=== PATIENT | male | born 1945 | race Caucasian/White ===

== ENCOUNTER 2016-10-29 13:03 | Inpatient (IN) | payer MEDICARE, OTHER ==
[2016-10-29] MEDS ORDERED: MIDAZOLAM 5 MG/5 ML (VERSED) VIAL ONE (13:15)
[2016-10-29] MEDS ORDERED: HEParin 1000 UNIT/ML (10ML VIAL) FOR BOLUS ONE (13:15)
[2016-10-29] MEDS ORDERED: LIDOCAINE 1% INJ 20 ML (XYLOCAINE) VIAL ONE (13:15)
[2016-10-29] MEDS ORDERED: NS IV 1000 ML 1,000 ML ONE (13:15)
[2016-10-29] MEDS ORDERED: NITROGLYCERIN DRIP 25 MG/D5W 0 ML IV ONE (13:15)
[2016-10-29] MEDS ORDERED: fentaNYL INJECTION 100 MCG/2 ML AMP ONE (13:15)
[2016-10-29] MEDS ORDERED: HEParin (CATH LAB) 2,000 ML IV ONE (13:16)
--- NOTE | 2016-10-29 13:16 | Cardiology History & Physical ---
HPI-Cardiology Cardiology Consultation Date of Consultation 10/29/16 Date of Admission Indication: chest pain HPI 71 years old gentleman with no known history, did not see a physician for over 10 years, active smoker, started having chest pain this morning, associated with diaphoresis and shortness of breath, went to [place] emergency room noted to have EKG changes with slight increase in his troponin, had his pain improved after receiving sublingual nitroglycerin, I requested to be transferred to [place] instead of [place]. Upon his arrival patient was feeling better, denied any active pain, received aspirin and heparin in the emergency room at [place]. Denied any palpitation or syncope. PMH-Cardiology Other PMHx Other PMHx: no known past medical history. Did not see a physician for over 10 years Social History Patient Social History Marrital Status: Employed/Student: retired Smoking: Current every day smoker Family Hx Other family history of heart disease ROS-Cardiology Review of Systems General: No Chills, No Night Sweats, Fatigue, No Malaise, No Appetite HEENT: No Head Aches, No Visual Changes, No Eye Pain, No Ear Pain, No Dysphasia , No Sinus Congestion, No Post Nasal Drip, No Sore Throat Pulmonary: Dyspnea, No Cough, No Pleuritic Chest Pain Cardiovascular: Chest Pain, No: Edema, Lt Headedness, Orthopnea, Palpitations, Paroxysmal Noc. Dyspnea Gastrointestinal: No: Abdominal Pain, Constipation, Diarrhea, Hematochezia, Melena, Nausea, Vomiting Genitourinary: No Dysuria, No Frequency, No Incontinence, No Hematuria, No Retention Musculoskeletal: No: arm pain, back pain, foot pain, hand pain, leg pain, neck pain, shoulder pain Neurological: No: Change in speech, Confusion, Incoordination, Numbness, Seizures, Weakness Home Medications & Allergies Allergies: Coded Allergies: No Known Drug Allergies (Unverified , 10/29/16) Home Medication List Reviewed: Yes Exam-Cardiology Exam General Appearance: Alert, Oriented X3, Cooperative, No Acute Distress HEENT: Atraumatic, PERRLA Respiratory: Clear to Auscultation, Normal Air Movement Cardiovascular: Regular Rate, Normal S1, Normal S2, No Murmurs Abdominal: Normal Bowel Sounds, Soft, No Tenderness, No Hepatosplenomegaly, No Masses Extremities: No Clubbing, No Cyanosis, No Edema, Normal Pulses, No Tenderness/ Swelling Skin: No Rashes, No Breakdown, No Significant Lesion Neuro: Normal Gait, Normal Speech, Strength at 5/5 X4 Ext, Normal Tone, Sensation Intact Psych/Mental Status: Mental Status NL, Mood NL Results Labs Labs reported from [facility] to have mildly elevated troponin A/P-Cardiology Admission Diagnosis Non-ST elevation myocardial infarction Coronary artery disease Congestive heart failure, acute left ventricular systolic dysfunction, ischemic cardiomyopathy with ejection fraction 20 percent Tobaccoism Assessment/Plan Non-ST elevation myocardial infarction, patient arrived directly to the catheter lab, underwent cardiac catheterization which showed severe multivessel coronary artery disease, he will be transferred immediately for evaluation for CABG to [place]. I discussed the management plan with Dr. Lui Serrato. Placed intra-aortic balloon pump and start him on heparin drip. Congestive heart failure, acute left ventricular systolic dysfunction, ischemic cardiomyopathy ejection fraction appeared to be 20 percent. Elevated left ventricular end-diastolic pressure. Patient will not be able to tolerate beta blockers, CAMILLE inhibitor and/or ARB due to his current condition, patient receive IV dose of Lopressor, he will be initiated on these medication at [facility] in [place]. Frequent PVCs. Given IV Lopressor. Tobaccoism, educated on smoking cessation Hyperglycemia, diabetes mellitus, blood sugar was about 400 in the emergency room, given 10 units of regular insulin. He will be managed by the temporary staff accountant at [facility]. DALE AMBROSIO MD Oct 29, 2016 1:16 pm
--- NOTE | 2016-10-29 13:16 | Cardiac Procedure Note-CS/ASA ---
Pre-Procedure Note Pre-Op Procedure Note H&P Reviewed The H&P was reviewed, patient examined and no changes noted. Date H&P Reviewed: Oct 29, 2016 Time H&P Reviewed: 13:15 Conscious Sedation Pre-Proced Time Reviewed: 13:15 ASA Class: 3 Airway Mallampati Classification: ([place] appropriate class) I. II. III, IV Lungs Heart ASA score ASA 1: a normal healthy patient ASA 2: a patient with a mild systemic disease (mid diabetes, controlled hypertension, obesity ASA 3: a patient with a severe systemic disease that limits activity (angina , COPD, prior Myocardial infarction) x ASA 4: a patient with an incapacitating disease that is a constant threat to life (CHF, renal failure) ASA 5: a moribund patient not expected to survive 24 hrs. (ruptured aneurysm) ASA 6: a declared brain patient whose organs are being harvested. For emergent operations, add the letter E after the classification Grade 3 Sedation Plan: Analgesia, Amnesia, Plan communicated to team members, Discussed options with patient/fam, Discussed risks with patient/fam Note The patient is an appropriate candidate to undergo the planned procedure, sedation, and anesthesia. The patient immediately re-assessed prior to indication. DALE AMBROSIO MD Oct 29, 2016 13:16
[2016-10-29] MEDS ORDERED: meTOprolol 5 MG/5 ML (LOPRESSOR) VIAL ONE (13:22)
[2016-10-29] MEDS ORDERED: HEParin (CATH LAB) 1,000 ML IV ONE (13:36)
[2016-10-29] MEDS ORDERED: HEParin DRIP 25000 UNIT/500ML 500 ML IV ONE (13:43)
[2016-10-29] MEDS ORDERED: HEParin DRIP 25000 UNIT/500ML 500 ML IV SCH (13:45)
[2016-10-29] MEDS ORDERED: PATIENT MAY USE OWN MEDS, ALL PO SCH (13:45)
[2016-10-29] MEDS ORDERED: NS IV 1000 ML 1,000 ML IV SCH (13:45)
[2016-10-30] MEDS ORDERED: ASPIRIN E.C. 81 MG (ECOTRIN) TAB PO SCH (09:00)
--- NOTE | 2016-10-30 11:44 | DISCHARGE SUMMARY ---
PROCEDURE PHYSICIAN: DALE ABMROSIO DATE OF PROCEDURE: 10/29/2016 BRIEF HISTORY: Mr. Momin is a 71-year-old gentleman with no known history, active smoker. He started having active chest pain early this morning came in [place] emergency room with non-ST elevation myocardial infarction, given aspirin and heparin. The patient requested to be transferred to [place]. PROCEDURE NOTE: After explaining the procedure to the patient, all pros and cons were explained. All questions were answered. The patient signed a consent and then he was placed on the cardiac catheterization laboratory. The right groin was prepped in a sterile fashion. Local anesthesia applied to right groin. 6-Setswana sheath was placed in the right femoral artery. Combination of right and left Spenser catheter were used to access the right and left coronary system. Multiple views were obtained. Pigtail catheter advanced to the left ventricular cavity. Left ventriculogram was done. Pullback LV to aorta was done. The aortic arch angiogram was done. At the end of the procedure I proceeded with intra-aortic balloon pump placement. Pump was placed with no complication. FINDINGS: HEMODYNAMICS: LV pressure 154/29, end-diastolic pressure of 29. Aortic pressure 138/18, mean of 98. ANATOMY: 1. Left main coronary artery is bifurcating to left anterior descending and left circumflex artery with no obstructive disease. 2. Left anterior descending artery has 90% ostial stenosis, totally occluded at the midportion, reconstructed by collaterals from the left system. 3. Left circumflex artery is moderate in size. It has 80 to 90% stenosis at the proximal and midportion. 4. Right coronary artery is totally occluded at the midportion, getting filled by collaterals from the left system. 5. Left ventriculogram was done in the left anterior oblique position. The left ventricle is dilated with severe diffuse left ventricular hypokinesia. Akinesia of the apex. Estimated ejection fraction 20%. 6. Aortic arch angiogram is normal in size. No dissection or aneurysm. Origin of the great neck vessels, both carotids and left subclavian appeared to be normal. CONCLUSION: 1. Severe multivessel disease with total occlusion of the LAD and the right coronary artery, severe disease at the circumflex artery. 2. Severe cardiomyopathy, ischemic in nature. With aneurysmal apex. Estimated ejection fraction 20%. 3. Normal aortic arch and great neck vessels. 4. Successful intra-aortic balloon pump placement. DISCUSSION AND RECOMMENDATION: [facility] I discussed the management plan with Dr. Lui Serrato, who accepted him. He will monitor him for the next 24 to 48 hours and then consider proceeding with a bypass surgery unless the patient becomes more symptomatic. FINAL DIAGNOSES: 1. Non-ST elevation myocardial infarction. 2. Coronary artery disease. 3. Congestive heart failure, acute left ventricular systolic dysfunction, nonischemic cardiomyopathy, ejection fraction 20%. 4. Tobaccoism. Job ID: [id number] Dictated Date: 10/29/2016 13:57:34 Slate Worker Date: 10/30/2016 11:42:17/sb
== END 2016-10-29 14:20 | disposition short-term general hospital (02) | DRG 270 ==
LOC: CATH 13:03 → CSD 13:03 → EDSTATUS 11-17 11:56
PROVIDERS: ADMIT Internal Medicine Cardiovascular Disease; ATTEND Internal Medicine Cardiovascular Disease
PROC: 5A02210 Assistance with Cardiac Output using Balloon Pump, Continuous (ICD-10-PCS; principal; 2016-10-29)
PROC: 4A023N7 Measurement of Cardiac Sampling and Pressure, Left Heart, Percutaneous Approach (ICD-10-PCS; 2016-10-29)
PROC: B2111ZZ Fluoroscopy of Multiple Coronary Arteries using Low Osmolar Contrast (ICD-10-PCS; 2016-10-29)
PROC: B2151ZZ Fluoroscopy of Left Heart using Low Osmolar Contrast (ICD-10-PCS; 2016-10-29)
PROC: B3101ZZ Fluoroscopy of Thoracic Aorta using Low Osmolar Contrast (ICD-10-PCS; 2016-10-29)
DX: I21.4 Non-ST elevation (NSTEMI) myocardial infarction (principal); I50.21 Acute systolic (congestive) heart failure; I25.10 Atherosclerotic heart disease of native coronary artery without angina pectoris; I25.5 Ischemic cardiomyopathy; I49.3 Ventricular premature depolarization; R73.9 Hyperglycemia, unspecified; F17.210 Nicotine dependence, cigarettes, uncomplicated
CPT/HCPCS: 33967; 93458

== ENCOUNTER 2020-02-03 14:46 | Emergency (ER) | payer MEDICARE, OTHER ==
[~2020-02-03] VITALS: Ht 172.7 cm; Wt 78.9 kg
--- NOTE | 2020-02-03 15:10 | ED Neurological Problem ---
General Stated Complaint: THINKS HES HAD A STROKE; DROOPY EYELIDS History of Present Illness Date Seen by Provider: Feb 03, 2020 Time Seen by Provider: 15:05 Initial Comments Pt presents with right facial weakness onset this morning when he woke up. He felt fine when he went to bed. He is unable to close his eyelid or his mouth, or raise his brow on the right side of his face. No loss of sensation though. He feels like his hearing is a little off in his right ear though. He does have a rash on the right side of his face and neck that he has had for about a week, his doctor put him on Clindamycin for it, but it appears to be shingles. Allergies and Home Medications Allergies Coded Allergies: No Known Drug Allergies (Unverified , 02/03/20) Home Medications Carboxymethylcellulos/Glycerin 15 Ml Drops, 15 ML OP PRN Prescribed by: TANMAY PRADO on 02/03/20 1608 Valacyclovir HCl 1,000 Mg Tablet, 1,000 MG PO Q8H Prescribed by: TANMAY PRADO on 02/03/20 1608 Patient Home Medication List Home Medication List Reviewed: Yes Review of Systems Review of Systems Constitutional: No chills, No fever Eyes: Denies Blindness, Denies Pain Ears, Nose, Mouth, Throat: no symptoms reported Respiratory: no symptoms reported Cardiovascular: no symptoms reported Gastrointestinal: no symptoms reported Skin: no symptoms reported Psychiatric/Neurological: Denies Headache, Denies Numbness; Weakness Physical Exam Vital Signs Vital Signs - First Documented 02/03/20 14:49 Temp 36.3 Pulse 106 Resp 16 B/P (MAP) 144/78 (100) Pulse Ox 94 O2 Delivery Room Air Capillary Refill : Height, Weight, BMI Height: '" Weight: lbs. oz. kg; BMI Method: General Appearance: WD/WN, no apparent distress HEENT: PERRL/EOMI, normal ENT inspection Neck: supple Respiratory: lungs clear, normal breath sounds Cardiovascular: regular rate, rhythm Gastrointestinal: non tender, soft Extremities: normal range of motion, non-tender, normal inspection Neurologic/Psychiatric: facial droop (Right facial weakness including brow, eyelid, mouth.); No sensory deficit (No sensory) Motor/Sensory: no sensory deficit Skin: warm/dry, rash (Vesicular rash right side of face/neck) Progress/Results/Core Measures Results/Orders Lab Results Laboratory Tests Test 02/03/20 15:13 Range/Units White Blood Count 7.8 4.3-11.0 10^3/uL Red Blood Count 5.10 4.35-5.85 10^6/uL Hemoglobin 16.3 13.3-17.7 G/DL Hematocrit 47 40-54 % Mean Corpuscular Volume 92 80-99 FL Mean Corpuscular Hemoglobin 32 25-34 PG Mean Corpuscular Hemoglobin Concent 35 32-36 G/DL Red Cell Distribution Width 12.5 10.0-14.5 % Platelet Count 189 130-400 10^3/uL Mean Platelet Volume 10.5 H 7.4-10.4 FL Neutrophils (%) (Auto) 64 42-75 % Lymphocytes (%) (Auto) 27 12-44 % Monocytes (%) (Auto) 9 0-12 % Eosinophils (%) (Auto) 0 0-10 % Basophils (%) (Auto) 0 0-10 % Neutrophils # (Auto) 5.0 1.8-7.8 X 10^3 Lymphocytes # (Auto) 2.1 1.0-4.0 X 10^3 Monocytes # (Auto) 0.7 0.0-1.0 X 10^3 Eosinophils # (Auto) 0.0 0.0-0.3 10^3/uL Basophils # (Auto) 0.0 0.0-0.1 10^3/uL Neutrophils % (Manual) 53 % Lymphocytes % (Manual) 28 % Monocytes % (Manual) 9 % Eosinophils % (Manual) 1 % Basophils % (Manual) 0 % Band Neutrophils 9 % Blood Morphology Comment NORMAL Sodium Level 133 L 135-145 MMOL/L Potassium Level 4.6 3.6-5.0 MMOL/L Chloride Level 96 L 98-107 MMOL/L Carbon Dioxide Level 24 21-32 MMOL/L Anion Gap 13 5-14 MMOL/L Blood Urea Nitrogen 20 H 7-18 MG/DL Creatinine 1.16 0.60-1.30 MG/DL Estimat Glomerular Filtration Rate > 60 BUN/Creatinine Ratio 17 Glucose Level 302 H 70-105 MG/DL Calcium Level 9.7 8.5-10.1 MG/DL Corrected Calcium 9.5 8.5-10.1 MG/DL Total Bilirubin 0.7 0.1-1.0 MG/DL Aspartate Amino Transf (AST/SGOT) 30 5-34 U/L Alanine Aminotransferase (ALT/SGPT) 47 0-55 U/L Alkaline Phosphatase 126 40-136 U/L Total Protein 7.5 6.4-8.2 GM/DL Albumin 4.3 3.2-4.5 GM/DL My Orders Orders - TANMAY PRADO MD Cbc And Manual Diff (02/03/20 15:03) Comprehensive Metabolic Panel (02/03/20 15:03) Ct Head Wo (02/03/20 15:03) Ekg-Prn For Chest Pain Or Rhyt (02/03/20 15:03) Vital Signs/I&O 02/03/20 14:49 Temp 36.3 Pulse 106 Resp 16 B/P (MAP) 144/78 (100) Pulse Ox 94 O2 Delivery Room Air Progress Progress Note : Progress Note Pt with shingles on right side of face and Stephens palsy. Valtex and eye drops prescribed. Pt also hyperglycemic, he is on glyburide, recommended he call his PCP tomorrow for follow up. Initial ECG Impression Date: Feb 03, 2020 Initial ECG Impression Time: 15:55 Initial ECG Rate: 99 Initial ECG Rhythm: Normal Sinus Initial ECG Intervals: Normal Comment NS, HR 99, age indeterminate anterior and inferior infarct, no acute st changes Departure Impression Primary Impression: Palomo's palsy Additional Impressions: Herpes zoster virus infection of face and ear nerves Hyperglycemia Disposition: 01 HOME, SELF-CARE Condition: Stable Departure-Patient Inst. Referrals: HERMAN GALAN DO (PCP/Family) Primary Care Physician Patient Instructions: Palomo's Palsy, Shingles Scripts Carboxymethylcellulos/Glycerin (Refresh Optive Eye Drops) 15 Ml Drops 15 ML OP PRN for Dry Eyes, #1 EA 1 Refill Prov: TANMAY PRADO MD 02/03/20 Valacyclovir HCl (Valtrex) 1,000 Mg Tablet 1000 MG PO Q8H for 7 Days, #21 TAB Prov: TANMAY PRADO MD 02/03/20 TANMAY PRADO MD Feb 03, 2020 15:10
--- NOTE | 2020-02-03 15:35 | Diagnostic Imaging Report ---
Procedure: CT head without contrast. Technique: Multiple contiguous axial images were obtained through the brain without the use of intravenous contrast. Auto Exposure Controls were utilized during the CT exam to meet ALARA standards for radiation dose reduction. Indication: Altered mental status with new onset right-sided eyelid drop. Comparison: None. Discussion: Mild diffuse brain volume loss is likely age related. No acute intracranial hemorrhage, mass, midline shift or hydrocephalus. There is complete opacification of the right maxillary sinus, incompletely viewed. The remainder of the sinuses and mastoid air cells are well-aerated. The orbits are unremarkable. The calvarium is intact. Impression: 1. No acute intracranial abnormality identified. 2. Chronic appearing right maxillary sinusitis. Dictated by: Dictated on workstation # [id number]
[2020-02-03 16:06] LABS: BASOPHILS % (AUTO) 0 % (0-10); EOSINOPHILS % (AUTO) 0 % (0-10); HEMATOCRIT 47 % (40-54); HEMOGLOBIN 16.3 G/DL (13.3-17.7); LYMPHOCYTES # (AUTO) 2.1 X 10^3 (1.0-4.0); LYMPHOCYTES % (AUTO) 27 % (12-44); MEAN CORPUSCULAR HEMOGLOBIN 32 PG (25-34); MEAN CORPUSCULAR HGB CONC 35 G/DL (32-36); MEAN CORPUSCULAR VOLUME 92 FL (80-99); MEAN PLATELET VOLUME 10.5 FL (7.4-10.4); MONOCYTES # (AUTO) 0.7 X 10^3 (0.0-1.0); MONOCYTES % (AUTO) 9 % (0-12); NEUTROPHILS % (AUTO) 64 % (42-75); PLATELET COUNT 189 10^3/uL (130-400); RED CELL DISTRIBUTION WIDTH 12.5 % (10.0-14.5); WHITE BLOOD COUNT 7.8 10^3/uL (4.3-11.0)
[2020-02-03] MEDS ORDERED: PRD20T PO (16:08)
[2020-02-03] MEDS ORDERED: CARB15DR2 OP (16:08)
[2020-02-03] MEDS ORDERED: VALA10004 PO (16:08)
[2020-02-03 16:23] LABS: CARBON DIOXIDE 24 MMOL/L (21-32); CHLORIDE 96 MMOL/L (98-107); POTASSIUM 4.6 MMOL/L (3.6-5.0); SODIUM 133 MMOL/L (135-145)
[2020-02-03 16:24] LABS: ALANINE AMINOTRANSFERASE 47 U/L (0-55); ALBUMIN 4.3 GM/DL (3.2-4.5); ALKALINE PHOSPHATASE 126 U/L (40-136); BAND NEUTROPHILS 9 %; BASOPHILS % (MANUAL) 0 %; BILIRUBIN,TOTAL 0.7 MG/DL (0.1-1.0); BUN/CREATININE RATIO 17; CALCIUM 9.7 MG/DL (8.5-10.1); CREATININE SERUM 1.16 MG/DL (0.60-1.30); EOSINOPHILS % (MANUAL) 1 %; GFR ESTIMATED > 60; GLUCOSE 302 MG/DL (70-105); LYMPHOCYTES % (MANUAL) 28 %; MONOCYTES % (MANUAL) 9 %; NEUTROPHILS % (MANUAL) 53 %; RBC MORPH NORMAL; TOTAL PROTEIN 7.5 GM/DL (6.4-8.2)
[2020-02-03 17:04] VITALS: BP 123/76
== END 2020-02-03 17:06 | disposition home or self-care (01) ==
LOC: ER FS 14:48 → MERGE 14:48 → ER FS 17:06
DX: G51.0 Bell's palsy (principal); B02.29 Other postherpetic nervous system involvement; R73.9 Hyperglycemia, unspecified
CPT/HCPCS: 36415; 70450; 80053; 85007; 85027

== ENCOUNTER 2020-05-27 06:45 | Outpatient (RCR) | payer MEDICARE ==
[~2020-05-27] VITALS: Ht 175 cm; Wt 77.2 kg
[~2020-05-27 06:45] MED LIST: CARB15DR2 OP; PRD20T PO; VALA10004 PO
[2020-05-27] MEDS ORDERED: LISI10TA2 PO (12:43)
[2020-05-27] MEDS ORDERED: CARV12.53 PO (12:43)
[2020-05-27] MEDS ORDERED: ATOR40TA70 PO (12:43)
[2020-05-27] MEDS ORDERED: SPIR25TA5 PO (12:43)
[2020-05-27] MEDS ORDERED: LEVO50TA6 PO (12:43)
[2020-05-27] MEDS ORDERED: CLOP75TA28 PO (12:43)
[2020-05-27] MEDS ORDERED: ASPI-999 PO (12:43)
[2020-05-27] MEDS ORDERED: GLIP5TAB13 PO (12:43)
[2020-05-27] MEDS ORDERED: PREG50CA65 PO (12:43)
== END 2020-05-28 09:45 | disposition home or self-care (01) ==
LOC: PREOP 06:45
PROVIDERS: ATTEND Specialist
DX: Z01.818 Encounter for other preprocedural examination (principal)

== ENCOUNTER → 2020-05-28 | Outpatient (CLI) | payer MEDICARE ==
[~2020-05-28] MED LIST changes: +ASPI-999 PO; +ATOR40TA70 PO; +CARV12.53 PO; +CLOP75TA28 PO; +GLIP5TAB13 PO; +LEVO50TA6 PO; +LISI10TA2 PO; +PREG50CA65 PO; +SPIR25TA5 PO
== END ==
LOC: LAB FS 10:30
PROVIDERS: ATTEND Specialist
DX: Z01.812 Encounter for preprocedural laboratory examination (principal); Z20.828 Contact with and (suspected) exposure to other viral communicable diseases
CPT/HCPCS: 87635

== ENCOUNTER 2020-05-30 09:08 | Day surgery (SDC) | payer MEDICARE ==
[~2020-05-30] VITALS: Ht 175 cm; Wt 77.0 kg
[2020-05-30] MEDS ORDERED: POVIDONE (BETADINE) OPHTH SOLN 5% 30 ML OP ONE (09:15)
[2020-05-30] MEDS ORDERED: MOXIFLOXACIN OPHTH SOLN 5 MG/ML 0.3 ML SYRINGE OP ONE (09:15)
[2020-05-30] MEDS ORDERED: LIDOCAINE PF 1% 2 ML VIAL IR PRN (09:15)
[2020-05-30] MEDS ORDERED: TIMOLOL MALEATE 0.5% 5 ML (TIMOPTIC) BTL OU PRN (09:15)
[2020-05-30 09:21] VITALS: BP 131/79
[2020-05-30] MEDS: TETRACAINE 0.5% OPHTH SOLN 4 ML BTL (SINGLE DOSE ONLY) OU PRN ×4 (09:39→09:55)
[2020-05-30] MEDS: TROPICAMIDE 1% OPH SOLN (MYDRIACYL) 15 ML BTL OP SCH ×3 (09:45→09:55)
[2020-05-30] MEDS: PHENYLEPHRINE 10% OPHTH (NEO-SYN) 5 ML BTL OU SCH ×3 (09:45→09:55)
--- NOTE | 2020-05-30 09:56 | Ophthalmologist Pre-Op Note ---
Pre-Operative Progress Note H&P Reviewed The H&P was reviewed, patient examined and no changes noted. Date H&P Reviewed: May 30, 2020 Time H&P Reviewed: 09:56 Pre-Op Dx Cataract, Left Eye BHANU KAY MD May 30, 2020 09:56
[2020-05-30] MEDS ORDERED: MIDAZOLAM 2 MG/2 ML (VERSED) VIAL ONE (10:01)
[2020-05-30] MEDS ORDERED: acetaZOLAMIDE ER 500 MG CAP (DIAMOX SEQUELS) PO ONE (10:30)
--- NOTE | 2020-05-30 10:35 | Ophthalmology Operative Report ---
Cataract, Miotic Pupil PREOPERATIVE DIAGNOSIS: 1. Cataract Left Eye 2. Miotic Pupil POSTOPERATIVE DIAGNOSIS: 1. Cataract Left Eye 2. Miotic Pupil PROCEDURE: 1. Cataract removal and placement of posterior chamber implant, left eye 2. Pupillary expansion with malyugin ring SURGEON: Hector Kay ANESTHESIA: Topical with sedation COMPLICATIONS: None ESTIMATED BLOOD LOSS: Minimal DESCRIPTION OF PROCEDURE: After proper informed consent was obtained, the patient, a 74 male, was taken to the Operating Room and the left eye was anesthetized with Tetracaine. The eye was then prepped and draped in the usual manner. A wire lid speculum was placed. A paracentesis was made at the left hand position. Preservative free lid ocaine was injected into anterior chamber followed by viscoelastic. A clear corneal incision was made in the temporal position. The malyugin ring was injected into the anterior chamber and the pupil was dilated. A capsulorrhexis was preformed and the central nuclear and cortical material were removed. The posterior capsule was polished and Nicolas 16.0 AU00T0 IOL was placed into the capsular bag. The myalgian ring was removed. The residual viscoelastic was aspirated and the balanced saline solution was injected into the anterior chamber. Moxifloxacin was injected into the anterior chamber. The wound was checked and found to be water tight. The patient tolerated the procedure well without complications. HECTOR KAY MD May 30, 2020 10:35
[2020-05-30 10:49] VITALS: BP 123/96
--- NOTE | 2020-05-30 12:23 | Anesthesia-General Post-Op ---
MAC Patient Condition Mental Status/LOC: Same as Preop Cardiovascular: Satisfactory Nausea/Vomiting: Absent Respiratory: Satisfactory Pain: Controlled Complications: Absent Post Op Complications Complications None Follow Up Care/Instructions Patient Instructions None needed. Anesthesiology Discharge Order Discharge Order Patient is doing well, no complaints, stable vital signs, no apparent adverse anesthesia problems. No complications reported per nursing. HERNANDEZ FERNANDEZ CRNA May 30, 2020 12:23
== END 2020-05-30 10:52 ==
LOC: SDC 09:08
PROVIDERS: ATTEND Specialist
DX: H25.12 Age-related nuclear cataract, left eye (principal); H57.03 Miosis; E03.9 Hypothyroidism, unspecified; E11.36 Type 2 diabetes mellitus with diabetic cataract; Z79.899 Other long term (current) drug therapy; Z95.5 Presence of coronary angioplasty implant and graft
CPT/HCPCS: 66982; V2632

== ENCOUNTER 2020-06-24 05:51 | Outpatient (RCR) | payer MEDICARE | END 2020-06-24 13:56 | disposition home or self-care (01) | LOC: PREOP 05:51 | PROVIDERS: ATTEND Specialist | DX: Z01.812 Encounter for preprocedural laboratory examination (principal); H25.9 Unspecified age-related cataract ==

== ENCOUNTER → 2020-06-25 | Outpatient (CLI) | payer MEDICARE | LOC: LAB FS 10:30 | PROVIDERS: ATTEND Specialist | DX: Z01.812 Encounter for preprocedural laboratory examination (principal); Z20.828 Contact with and (suspected) exposure to other viral communicable diseases | CPT/HCPCS: 87635 ==

== ENCOUNTER 2020-06-27 06:45 | Day surgery (SDC) | payer MEDICARE ==
[~2020-06-27] VITALS: Ht 172 cm; Wt 78.2 kg
[2020-06-27 06:50] VITALS: BP 95/59
[2020-06-27] MEDS ORDERED: MOXIFLOXACIN OPHTH SOLN 5 MG/ML 0.3 ML SYRINGE OP ONE (07:00)
[2020-06-27] MEDS: TETRACAINE 0.5% OPHTH SOLN 4 ML BTL (SINGLE DOSE ONLY) OU PRN ×4 (07:00→07:34)
[2020-06-27] MEDS ORDERED: POVIDONE (BETADINE) OPHTH SOLN 5% 30 ML OP ONE (07:00)
[2020-06-27] MEDS ORDERED: TIMOLOL MALEATE 0.5% 5 ML (TIMOPTIC) BTL OU PRN (07:00)
[2020-06-27] MEDS ORDERED: LIDOCAINE PF 1% 2 ML VIAL IR PRN (07:00)
[2020-06-27] MEDS ORDERED: MIDAZOLAM 2 MG/2 ML (VERSED) VIAL ONE (07:09)
[2020-06-27] MEDS: PHENYLEPHRINE 10% OPHTH (NEO-SYN) 5 ML BTL OU SCH ×3 (07:13→07:34)
[2020-06-27] MEDS: TROPICAMIDE 1% OPH SOLN (MYDRIACYL) 15 ML BTL OP SCH ×3 (07:13→07:34)
--- NOTE | 2020-06-27 07:43 | Ophthalmologist Pre-Op Note ---
Pre-Operative Progress Note H&P Reviewed The H&P was reviewed, patient examined and no changes noted. Date H&P Reviewed: Jun 27, 2020 Time H&P Reviewed: 07:43 Pre-Op Dx Cataract, Right Eye BHANU KAY MD Jun 27, 2020 07:43
[2020-06-27] MEDS ORDERED: acetaZOLAMIDE ER 500 MG CAP (DIAMOX SEQUELS) PO ONE (08:00)
--- NOTE | 2020-06-27 08:09 | Ophthalmology Operative Report ---
Cataract, Miotic Pupil PREOPERATIVE DIAGNOSIS: 1. Cataract Right Eye 2. Miotic Pupil POSTOPERATIVE DIAGNOSIS: 1. Cataract Right Eye 2. Miotic Pupil PROCEDURE: 1. Cataract removal and placement of posterior chamber implant, right eye 2. Pupillary expansion with malyugin ring SURGEON: Hector Kay ANESTHESIA: Topical with sedation COMPLICATIONS: None ESTIMATED BLOOD LOSS: Minimal DESCRIPTION OF PROCEDURE: After proper informed consent was obtained, the patient, a 75 male, was taken to the Operating Room and the right eye was anesthetized with Tetracaine. The eye was then prepped and draped in the usual manner. A wire lid speculum was placed. A paracentesis was made at the left hand position. Preservative free lidocaine was injected into anterior chamber followed by viscoelastic. A clear corneal incision was made in the temporal position. The malyugin ring was injected into the anterior chamber and the pupil was dilated. A capsulorrhexis was preformed and the central nuclear and cortical material were removed. The posterior capsule was polished and Nicolas 15.5 AU00T0 IOL was placed into the capsular bag. The malyugin ring was removed. The residual viscoelastic was aspirated and the balanced saline solution was injected into the anterior chamber. Moxifloxacin was injected into the anterior chamber. The wound was checked and found to be water tight. The patient tolerated the procedure well without complications. HECTOR KAY MD Jun 27, 2020 08:09
[2020-06-27 08:15] VITALS: BP 119/64
--- NOTE | 2020-06-27 10:59 | Anesthesia-General Post-Op ---
MAC Patient Condition Mental Status/LOC: Same as Preop Cardiovascular: Satisfactory Nausea/Vomiting: Absent Respiratory: Satisfactory Pain: Controlled Complications: Absent Post Op Complications Complications None Follow Up Care/Instructions Patient Instructions None needed. Anesthesiology Discharge Order Discharge Order Patient is doing well, no complaints, stable vital signs, no apparent adverse anesthesia problems. No complications reported per nursing. HERNANDEZ FERNANDEZ CRNA Jun 27, 2020 10:59
== END 2020-06-27 08:15 | disposition home or self-care (01) ==
LOC: SDC 06:45
PROVIDERS: ATTEND Specialist
DX: H25.11 Age-related nuclear cataract, right eye (principal); H57.03 Miosis; E11.36 Type 2 diabetes mellitus with diabetic cataract; E03.9 Hypothyroidism, unspecified; Z95.5 Presence of coronary angioplasty implant and graft; Z79.899 Other long term (current) drug therapy
CPT/HCPCS: 66982; V2632